=== PATIENT | female | born 1970 | race Caucasian/White ===

== ENCOUNTER 2025-02-03 19:16 | Emergency (ER) | payer MEDICAID ==
[~2025-02-03] VITALS: Ht 165.1 cm; Wt 65.9 kg
[2025-02-03 20:42] LABS: PLATELET COUNT (AUTO) 312 K/uL (150-450); RED BLOOD CELL COUNT(AUTO) 3.83 MIL/uL (4.00-5.20); RED CELL DISTRIBUTION WIDTH 13.9 % (11.5-14.5); WHITE BLOOD COUNT (AUTO) 6.5 K/uL (4.5-11.0)
[2025-02-03 20:46] LABS: CALCIUM, TOTAL 8.4 mg/dL (8.8-10.5); CREATININE 1.22 mg/dL (0.60-1.30); GLOMERULAR FILTR. RATE CALC 46 mL/min (>60); GLUCOSE,RANDOM 93 mg/dL (70-110); SODIUM SERUM 140 mmol/L (136-145); UREA NITROGEN, BLOOD 20 mg/dL (7-18)
[2025-02-03 20:56] LABS: TROPONIN I-HIGH SENSITIVITY 4 ng/L (<51)
[2025-02-03 22:12] LABS: COVID AG,FIA SOURCE NASAL SWAB
[2025-02-03 22:39] LABS: SARS-COV2 (COVID) ANTIGEN,FIA Negative (Negative)
[2025-02-03 22:40] LABS: INFLUENZA TYPE A NEGATIVE FOR TYPE A (NEGATIVE); INFLUENZA TYPE B NEGATIVE FOR TYPE B (NEGATIVE)
[2025-02-03 23:40] LABS: TROPONIN I-HIGH SENSITIVITY Less Than 4 ng/L (<51)
[2025-02-04] MEDS ORDERED: ACETAMINOPHEN 500 MG TABLET ONE (00:47)
[2025-02-04] MEDS ORDERED: AMOX250C4 PO (01:12)
[2025-02-04 02:03] VITALS: BP 116/67; PULSE 70; RESP 15; TEMP 97.9; O2SAT 98
== END 2025-02-04 02:11 | disposition home or self-care (01) ==
LOC: EMS 19:16
DX: R60.0 Localized edema (principal); J06.9 Acute upper respiratory infection, unspecified; R07.89 Other chest pain; J45.909 Unspecified asthma, uncomplicated; Z20.822 Contact with and (suspected) exposure to COVID-19
CPT/HCPCS: 71045; 80048; 84484; 85025; 85379; 87804; 93005; 93971; 99285; 36415-L1; 36415-TC